=== PATIENT | male | born 1975 | race Caucasian/White ===

== ENCOUNTER 2024-10-11 15:35 | Emergency (ER) | payer OTHER, SELFPAY ==
[2024-10-11 15:38] VITALS: BP 186/90; PULSE 85; RESP 20; TEMP 37.3; O2SAT 96; BMI 40.1
--- NOTE | 2024-10-11 16:17 | ED_ITS ---
HPI - Skin/Abscess/Foreign Bdy <Bushra Alfonso PA-C - Last Filed: 10/11/24 17:14> General Chief complaint: Skin/Abscess/Foreign Body Stated complaint: Boil on abd Time Seen by Provider: 10/11/24 16:17 Source: patient Mode of arrival: Ambulatory Limitations: no limitations History of Present Illness HPI narrative: Mr. Mooney is a pleasant 48-year-old male currently on Suboxone with no r eported medical problems who presents to the emergency department for a ?boil? on his right lower abdomen below the pant line x 2 days. Patient states he often gets boils that he pops on his own but he was not able to pop this one which prompted his ER arrival. States this area is uncomfortable and he knows he needs it drained. He denies flu-like symptoms, fevers, chills, abdominal pain, nausea, vomiting, testicular pain or swelling. He has taken no pain medication prior to arrival. States he has not required antibiotics and at least 10 years. Related Data Previous Rx's Medication Instructions Recorded doxycycline hyclate 100 mg capsule 100 mg PO BID 7 days #14 caps 10/11/24 Allergies Allergy/AdvReac Type Severity Reaction Status Date / Time No Known Drug Allergies Allergy Verified 10/11/24 16:55 Review of Systems <Bushra Alfonso PA-C - Last Filed: 10/11/24 17:14> Review of Systems ROS Unobtainable: All systems reviewed & are unremarkable except as noted in HPI and below Patient History <Bushra Alfonso PA-C - Last Filed: 10/11/24 17:14> Social History Smoking Status: Current every day smoker Smoking Status: Current every day smoker Exam <Bushra Alfonso PA-C - Last Filed: 10/11/24 17:14> Narrative Exam Narrative: GENERAL: 48 year old patient appears stated age. Obese patient, in no acute distress. HEAD: Atraumatic. Normocephalic. ENT: Nose without bleeding, purulent drainage. NECK: Trachea midline. Cervical ROM intact. CARDIOVASCULAR: Regular rate RESPIRATORY: ?Nonlabored respirations. ?Speaking in clear, full sentences. ? GASTROINTESTINAL: Abdomen soft, non-tender, nondistended. In the fold of the patient's abdominal pannus, on the right side, he has an approximately 2 cm area of erythema tenderness and induration with central fluctuance. No streaking erythema in the surrounding area. EXTREMITIES: No edema or joint tenderness. NEURO: AOx3. ?Clear speech. ?Moves all 4 extremities appropriately. Initial Vital Signs Initial Vital Signs: Vital Signs Temperature 99.2 F 10/11/24 15:38 Pulse Rate 85 10/11/24 15:38 Respiratory Rate 20 10/11/24 15:38 Blood Pressure 186/90 H 10/11/24 15:38 Pulse Oximetry 96 10/11/24 15:38 Oxygen Delivery Method Room Air 10/11/24 15:38 <Shanika Molina DO - Last Filed: 10/16/24 08:41> Initial Vital Signs Initial Vital Signs: Vital Signs Temperature 99.2 F 10/11/24 15:38 Pulse Rate 85 10/11/24 15:38 Respiratory Rate 20 10/11/24 15:38 Blood Pressure 186/90 H 10/11/24 15:38 Pulse Oximetry 96 10/11/24 15:38 Oxygen Delivery Method Room Air 10/11/24 15:38 Procedures <Bushra Alfonso PA-C - Last Filed: 10/11/24 17:14> Abscess I/D I&D #1: Time of procedure: 17:00 Site: abdomen (RLQ) Side (if applicable): right Local Anesthetic: lidocaine 1% and with epi Amount of anesthesia used (mL): 1 Technique: incised with #11 blade Amount of fluid expressed (mL): 3 Irrigation: Yes Packing used?: none Complications: other (none) Course <Bushra Alfonso PA-C - Last Filed: 10/11/24 17:14> Orders Ordered: Discontinued Medications Doxycycline Hyclate (Doxycycline Hyclate 100 Mg Tablet) 100 mg PO NOW ONE Stop: 10/11/24 17:03 Last Admin: 10/11/24 17:07 Dose: 100 mg Documented By: LEATHA Lidocaine/Epinephrine (Lidocaine 1% W/Epi 20ml) 1 ml SUBCUT NOW ONE Stop: 10/11/24 16:48 Last Admin: 10/11/24 16:54 Dose: 1 ml Documented By: LEATHA Vital Signs Vital signs: Vital Signs - 8 hr 10/11/24 15:38 Temperature 99.2 F Pulse Rate 85 Respiratory Rate 20 Blood Pressure 186/90 H Pulse Oximetry 96 Oxygen Delivery Method Room Air <Shanika Molina DO - Last Filed: 10/16/24 08:41> Orders Ordered: Discontinued Medications Doxycycline Hyclate (Doxycycline Hyclate 100 Mg Tablet) 100 mg PO NOW ONE Stop: 10/11/24 17:03 Last Admin: 10/11/24 17:07 Dose: 100 mg Documented By: LEATHA Lidocaine/Epinephrine (Lidocaine 1% W/Epi 20ml) 1 ml SUBCUT NOW ONE Stop: 10/11/24 16:48 Last Admin: 10/11/24 16:54 Dose: 1 ml Documented By: LEATHA Vital Signs Vital signs: Vital Signs - 8 hr 10/11/24 15:38 Temperature 99.2 F Pulse Rate 85 Respiratory Rate 20 Blood Pressure 186/90 H Pulse Oximetry 96 Oxygen Delivery Method Room Air MDM - Skin/Abscess/Foreign Bdy <Bushra Alfonso PA-C - Last Filed: 10/11/24 17:14> MDM Narrative Medical decision making narrative: 48-year-old male currently on Suboxone with no reported medical problems who presents to the emergency department for a ?boil? on his right lower abdomen below the pant line x 2 days. Differential diagnosis includes but is not limited to abscess, cellulitis, hernia, ingrown hair, HS, etc. On exam patient is in no acute distress, nontoxic appearing, vital signs within normal limits except for elevated blood pressure of 186/90, patient states he has history of elevated blood pressure but does not take any medications. His abdomen is soft and nontender, in the fold of his pannus on the right side he does have an area of tenderness, erythema, induration, minimal fluctuance consistent with abscess. Bedside ultrasound was performed by myself which confirmed a small, superficial area of fluid under the skin consistent with cutaneous abscess. After shared decision-making we will proceed with I&D most fluctuant area of the abscess. Patient tolerated the procedure well and about 3 mL of bloody purulence was e xpressed. Dressing was applied. Patient given 1st dose of doxycycline, remainder of doxycycline sent to the patient's pharmacy and I also provided him with a good Rx coupon so he can afford the medication. We discussed signs and symptoms of infection to return to ER for. He was given Hibiclens wash and instructed on wound care. Patient verbalized understanding of all information is stable for discharge. Understands the importance of following with PCP for wound recheck and also to address his asymptomatic hypertension. Discharge Plan Departure Patient Disposition: Home Clinical Impression: Cutaneous abscess of abdominal wall, Elevated blood pressure reading Instructions: DI for Skin Abscess Activity Restrictions/Additional Instructions: Dear Mr. Mooney, Your diagnosis today is skin abscess. You were also noted to have elevated blood pressure. The skin infection was drained in the ER. Please use warm compresses and keep the area clean, dry, covered to allow continued drainage of any pus. Complete the full course of antibiotics. If you develop increased redness around the wound, streaking redness on your abdomen, fevers, abdominal pain, vomiting, scrotal pain or swelling, return to the ER immediately. Please follow up with your primary care doctor within the next 2-3 days for ER follow-up and blood pressure evaluation. (If you do not have a PCP you can call [phone]. ?to schedule an appointment with an [facility] Primary Care Provider) IF YOU DEVELOP ANY NEW OR WORSENING SYMPTOMS, RETURN TO THE ER! Please read the attached instructions, they highlight more specific treatments and interventions for you at home. Thank you for letting me participate in your care, Bushra Alfonso PA-C Prescriptions: New doxycycline hyclate 100 mg capsule 100 mg PO BID 7 Days Qty: 14 0RF Referrals: Miscellaneous,[facility] [Primary Care Provider] - Stand Alone Forms: Patient Portal/API/Survey ED Sign-out <Shanika Molina DO - Last Filed: 10/16/24 08:41> Cosign ED Attending Nette Attestation: I was immediately available in the department for consultation.
[2024-10-11] MEDS: LIDOCAINE 1% W/EPI 20ML SUBCUT (16:54)
[2024-10-11] MEDS: DOXYCYCLINE HYCLATE 100 MG TABLET PO (17:07)
== END 2024-10-11 17:17 | disposition home or self-care (01) ==
PROVIDERS: Emergency Provider Physician Assistant
DX: L02.211 Cutaneous abscess of abdominal wall (principal); R03.0 Elevated blood-pressure reading, without diagnosis of hypertension
CPT/HCPCS: 10060; 99283